=== PATIENT | female | born 1980 | race Asian ===

== ENCOUNTER 2019-06-02 05:55 | Inpatient (IN) ==
[2019-06-02] MEDS ORDERED: Ondansetron 4 MG/2 ML VIAL IVP PRN (06:00)
[2019-06-02] MEDS ORDERED: *HR* Nalbuphine 10 MG/ML AMPUL IVP PRN (06:00)
[2019-06-02] MEDS ORDERED: Famotidine 20 MG/2 ML VIAL IVP PRN (06:00)
[2019-06-02] MEDS ORDERED: Metoclopramide 10 MG/2 ML VIAL IVP PRN (06:00)
[2019-06-02] MEDS ORDERED: miSOPROStol 25 MCG TABLET PO PRN (06:00)
[2019-06-02] MEDS ORDERED: Lidocaine 1% 20 ML MDV INFILT PRN (06:00)
[2019-06-02] MEDS ORDERED: Naloxone 0.4 MG/ML INJ IVP PRN (06:00)
[2019-06-02 07:05] LABS: Basophils % 0.6 %; Eosinophils # 0.1 K/mcL (0.0-0.6); Eosinophils % 0.8 %; Hematocrit 37.1 % (35.3-44.9); Hemoglobin 12.8 g/dL (11.5-15.4); Immature Granulocytes % 1.1 % (0-4); Lymphocytes # 1.2 K/mcL (0.6-4.6); Lymphocytes % 18.8 %; Mean Corpuscular HGB Conc 34.5 g/dL (31.6-35.5); Mean Corpuscular Hemoglobin 31.6 pg (28.0-33.3); Mean Corpuscular Volume 91.6 fL (83.0-100.0); Mean Platelet Volume 12.4 fL (9.4-12.4); Monocytes # 0.8 K/mcL (0.0-1.3); Monocytes % 11.4 %; Neutrophils # 4.5 K/mcL (1.6-8.9); Platelet Count 165 K/mcL (140-400); Red Blood Count 4.05 M/mcL (3.82-4.97); Red Cell Distribution Width 14.6 % (11.5-14.5); Segmented Neutrophils % 67.3 %; White Blood Count 6.6 K/mcL (4.3-11.1)
[2019-06-02] MEDS: Ringers Solution, Lactated 1,000 ML IVC SCH ×2 (07:54→14:56)
[2019-06-02 08:15] LABS: Amphetamine Screen,Urine Negative ng/mL (Cutoff=1000); Barbiturate Screen,Urine Negative ng/mL (Cutoff=200); Benzodiazepines Screen,Urine Negative ng/mL (Cutoff=200); Cannabinoid Screen,Urine Negative ng/mL (Cutoff = 50); Cocaine Screen,Urine Negative ng/mL (Cutoff= 300); Opiate Screen,Urine Negative ng/mL (Cutoff=300); Phencyclidine Screen,Urine Negative ng/mL (Cutoff=25)
[2019-06-02] MEDS ORDERED: *HR* Oxytocin 10 UNIT/ML VIAL IM ONE (08:38)
[2019-06-02] MEDS ORDERED: EPHEDrine 50 MG/ML VIAL IVP PRN (08:58)
[2019-06-02] MEDS ORDERED: 0.9 % Sodium Chloride 1,000 ML ONE ×2 (09:17→12:32)
[2019-06-02] MEDS ORDERED: *HR* FentaNYL (PF) 100 MCG/2 ML VIAL ONE (12:29)
[2019-06-02] MEDS ORDERED: Ropivacaine/PF 0.2% 20 ML VIAL ONE (12:29)
[2019-06-02] MEDS: Epidural Premix (fent/bupiv) 110 ML EP SCH ×2 (12:43→21:56)
[2019-06-02] MEDS: Oxytocin 20 units/ LR 1000 mL 20 UNIT/1,000 ML BAG IVC SCH (14:56)
[2019-06-03] MEDS ORDERED: *HR* FentaNYL (PF) 100 MCG/2 ML VIAL ONE (08:25)
[2019-06-03] MEDS ORDERED: Ropivacaine/PF 0.2% 20 ML VIAL ONE (08:25)
[2019-06-03] MEDS: Oxytocin 20 units/ LR 1000 mL 20 UNIT/1,000 ML BAG IVC SCH (09:27)
[2019-06-03] MEDS ORDERED: Acetaminophen 325 MG TABLET PO PRN (14:14)
[2019-06-03] MEDS ORDERED: Oxytocin 20 units/ LR 1000 mL 20 UNIT/1,000 ML BAG IVC SCH (14:14)
[2019-06-03] MEDS ORDERED: *HR* HYDROcodone/Acet 5/325 mg TABLET PO PRN (14:14)
[2019-06-03] MEDS: Ibuprofen 600 MG TABLET PO PRN (16:01)
[2019-06-04] MEDS: Prenatal Vit/FA 1 EACH TABLET PO SCH (07:56)
[2019-06-04] MEDS: Ibuprofen 600 MG TABLET PO PRN (12:43)
[2019-06-05 08:23] VITALS: BP 101/63
[2019-06-05] MEDS: Ibuprofen 600 MG TABLET PO PRN (09:27)
[2019-06-05] MEDS: Prenatal Vit/FA 1 EACH TABLET PO SCH (09:28)
[2019-06-05] MEDS ORDERED: Benzocaine/Menthol 56 GM AEROSOL SPRAY TP PRN (10:02)
== END 2019-06-05 13:57 | disposition home or self-care (01) | DRG 560 ==
LOC: 1NENULAB 05:55 → 1NENUOBS 06-03 14:07
PROVIDERS: ADMIT Obstetrics & Gynecology; ATTEND Obstetrics & Gynecology